=== PATIENT | female | born 1970 | race Two or more races ===

== ENCOUNTER 2024-05-22 19:38 | Emergency (ER) | payer MEDICAID ==
[~2024-05-22] VITALS: Ht 157.5 cm; Wt 58.3 kg
[2024-05-22 20:56] LABS: Basophils # (auto) 0 10 ^3/uL (0-0.2); Basophils % (auto) 0.4 % (0.0-2.0); Eosinophils # (auto) 0 10 ^3/uL (0-0.8); Eosinophils % (auto) 0.3 % (0.0-7.0); Hematocrit 43.7 % (36.0-46.0); Hemoglobin 15.2 g/dL (12.2-16.2); Lymphocytes # (auto) 1.1 10 ^3/uL (0.4-5.4); Lymphocytes % (auto) 19.9 % (10.0-50.0); Mean Corpuscular Hemoglobin 31.9 pg (28.0-32.0); Mean Corpuscular Hgb Conc. 34.7 g/dL (32.0-36.0); Mean Corpuscular Volume 91.9 fL (80.0-100.0); Monocytes # (auto) 0.2 10 ^3/uL (0-1.3); Neutrophils # (auto) 4.4 10 ^3/uL (1.6-8.6); Neutrophils % (auto) 75.4 % (37.0-80.0); Nucleated Red Blood Cells % 0.1 %; Platelet Count (auto) 294 10^3/uL (140-450); Red Blood Cells 4.75 10^6/uL (4.0-5.20); Red Cell Distribution Width 13.1 % (11.8-14.3); White Blood Cell 5.8 10^3/uL (4.4-10.8)
[2024-05-22 21:09] LABS: Alanine Aminotransferase 27 U/L (7-40); Albumin 4.7 g/dL (3.2-4.8); Alkaline Phosphatase 90 U/L (46-116); Anion Gap 7 (5-15); Aspartate Aminotransferase 24 U/L (13-40); BUN/Creatinine Ratio 15.3 (10.0-20.0); Blood Urea Nitrogen 13 mg/dL (9-23); Calcium 10.4 mg/dL (8.7-10.4); Carbon Dioxide 26 mmol/L (20-31); Chloride 106 mmol/L (98-107); Glucose 117 mg/dL (74-106); Potassium 4.3 mmol/L (3.5-5.1); Sodium 139 mmol/L (136-145)
[2024-05-22 21:10] LABS: Bilirubin, Total 0.8 mg/dL (0.2-1.0); Total Protein 7.6 g/dL (5.7-8.2)
--- NOTE | 2024-05-22 21:34 | ED.PDOC ---
History of Present Illness HPI Comments 53 y/o F, with a Hx of depression, presents with c/o nausea, vomiting, and headache since yesterday, associated with subjective fever and generalized weakness. Patient denies having any abdominal pain, hematemesis, diarrhea, dysuria, urinary frequency, urgency, hematuria, flank pain, constipation, chills, or other associated symptoms or modifiers at this time. Chief Complaint: Nausea/Vomiting Time Seen by MD: 20:50 Primary Care Provider: NONE Reviewed Notes: Nurses Notes, Medications, Allergies Allergies: Coded Allergies: NO KNOWN ALLERGIES (Unverified , 11/02/10) Home Meds Active Scripts Famotidine (Pepcid AC) 20 Mg Tab, 20 MG PO BID PRN, #30 TAB prn upset stomach Prov:KAREEM MAGDALENO MD 05/22/24 Ondansetron Odt 4MG Tab (ZOFRAN PO) 4 Mg Tb, 4 MG PO TID PRN, #30 TAB prn n/v ODT TAB-DISSOLVE IN MOUTH, THEN SWALLOW Prov:KAREEM MAGDALENO MD 05/22/24 Information Source: Patient Mode of Arrival: Ambulatory Severity: Moderate Timing: Days Duration: Since onset Prehospital treatment: Other (see HPI) Past Medical History PAST MEDICAL HISTORY: Depression Surgical History: Denies all surgeries 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 COILER 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: Denies all 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 Hx Family History Family History: Unknown Social History Smoker: Non-Smoker Alcohol: Denies ETOH Use Drugs: Denies Drug Use Lives In: Home Constitutional: denies: chills, diaphoresis, fatigue, fever, malaise, sweats, weakness, others EENTM: denies: blurred vision, double vision, ear bleeding, ear discharge, ear drainage, ear pain, ear ringing, eye pain, eye redness, hearing loss, mouth pain, mouth swelling, nasal discharge, nose bleeding, nose congestion, nose pain, photophobia, tearing, throat pain, throat swelling, voice changes, others Respiratory: denies: cough, hemoptysis, orthopnea, SOB at rest, shortness of breath, SOB with excertion, stridor, wheezing, others Cardiovascular: denies: chest pain, dizzy spells, diaphoresis, Dyspnea on exertion, edema, irregular heart beat, left arm pain, lightheadedness, palpitations, PND, syncope, others Gastrointestinal: reports: nausea, vomiting; denies: abdomen distended, abdominal pain, blood streaked bowels, constipated, diarrhea, dysphagia, difficulty swallowing, hematemesis, melena, poor appetite, poor fluid intake, rectal bleeding, rectal pain, others Genitourinary: denies: abnormal vagina bleeding, burning, dyspareunia, dysuria, flank pain, frequency, hematuria, incontinence, pain, , vagina discharge, urgency, others Neurological: reports: headache; denies: dizziness, fainting, left sided numbness, left sided weakness, numbness, paresthesia, pre-existing deficit, right sided numbness, right sided weakness, seizure, speech problems, tingling, tremors, weakness, others Musculoskeletal: denies: back pain, gout, joint pain, joint swelling, muscle pain, muscle stiffness, neck pain, others Integumetry: denies: bruises, change in color, change in hair/nails, dryness, laceration, lesions, lumps, rash, wounds, others Allergic/Immunocompromised: denies: Difficulty Healing, Frequent Infections, Hives, Itching, others Hematologic/Lymphatic: denies: anemia, blood clots, easy bleeding, easy bruising, swollen glands, others Endocrine: denies: excessive hunger, excessive sweating, excessive thirst, excessive urination, flushing, intolerance to cold, intolerance to heat, unexplained weight gain, unexplained weight loss, others Psychiatric: denies: anxiety, bipolar disorder, depression, hopeless, panic disorder, schizophrenia, sleepless, suicidal, others All Other Systems: Reviewed and Negative Physical Exam General Appearance: Mild Distress HEENT: Normal ENT Inspection Neck: Full Range of Motion, Normal Inspection Respiratory: Lungs Clear, No Accessory Muscle Use, No Respiratory Distress, Normal Breath Sounds Cardiovascular: No Edema, No JVD, Regular Rate/Rhythm Breast Exam: Deferred Gastrointestinal: Non Tender, Soft Genitalia: Deferred Pelvic: Deferred Rectal: Deferred Extremities: Normal inspection, Normal range of motion, No pedal edema Neurologic: Alert, No Motor Deficits, Normal Affect, Normal Mood, No Sensory Deficits Cerebellar Function: NOT DONE Reflexes: NOT DONE Skin: Dry, Normal Color, Warm Lymphatic: NOT DONE Was a procedure done? Was a procedure done?: No Differential Dx Considerations may include: gastritis, gastroenteritis, , viral syndrome, tension headache, migraines, spoiled food ingestion, among others X-Ray, Labs, Meds, VS Vital Signs Date Time Temp Pulse Resp B/P (MAP) Pulse Ox O2 Delivery O2 Flow Rate FiO2 05/23/24 00:10 63 18 98 Room Air* 0 21 05/23/24 00:10 98.0 63 18 102/57 (72) 98 98.0 05/22/24 19:51 98.1 72 16 102/60 (74) 98 Lab Test 05/22/24 20:34 Range/Units White Blood Count 5.8 4.4-10.8 10^3/uL Red Blood Count 4.75 4.0-5.20 10^6/uL Hemoglobin 15.2 12.2-16.2 g/dL Hematocrit 43.7 36.0-46.0 % Mean Corpuscular Volume 91.9 80.0-100.0 fL Mean Corpuscular Hemoglobin 31.9 28.0-32.0 pg Mean Corpuscular Hemoglobin Concent 34.7 32.0-36.0 g/dL Red Cell Distribution Width 13.1 11.8-14.3 % Platelet Count 294 140-450 10^3/uL Mean Platelet Volume 7.8 6.9-10.8 fL Neutrophils (%) (Auto) 75.4 37.0-80.0 % Lymphocytes (%) (Auto) 19.9 10.0-50.0 % Monocytes (%) (Auto) 4.0 0.0-12.0 % Eosinophils (%) (Auto) 0.3 0.0-7.0 % Basophils (%) (Auto) 0.4 0.0-2.0 % Neutrophils # (Auto) 4.4 1.6-8.6 10 ^3/uL Lymphocytes # (Auto) 1.1 0.4-5.4 10 ^3/uL Monocytes # (Auto) 0.2 0-1.3 10 ^3/uL Eosinophils # (Auto) 0 0-0.8 10 ^3/uL Basophils # (Auto) 0 0-0.2 10 ^3/uL Nucleated Red Blood Cells 0.1 % Sodium Level 139 136-145 mmol/L Potassium Level 4.3 3.5-5.1 mmol/L Chloride Level 106 98-107 mmol/L Carbon Dioxide Level 26 20-31 mmol/L Anion Gap 7 5-15 Blood Urea Nitrogen 13 9-23 mg/dL Creatinine 0.85 0.550-1.02 mg/dL Glomerular Filtration Rate Calc 83 >90 mL/min BUN/Creatinine Ratio 15.3 10.0-20.0 Serum Glucose 117 H 74-106 mg/dL Calcium Level 10.4 8.7-10.4 mg/dL Total Bilirubin 0.8 0.2-1.0 mg/dL Aspartate Amino Transferase (AST) 24 13-40 U/L Alanine Aminotransferase (ALT) 27 7-40 U/L Alkaline Phosphatase 90 46-116 U/L Total Protein 7.6 5.7-8.2 g/dL Albumin 4.7 3.2-4.8 g/dL Beta HCG, Quantitative 1.4 L 1.5-4.2 mIU/mL Current Medications Medications (Trade) Dose Ordered Sig/Francoise Route Start Time Stop Time Status Last Admin Sodium Chloride 1,000 ml @ 1,000 mls/hr Q1H ONCE IV 05/22/24 20:30 05/22/24 21:29 DC 05/23/24 00:16 Ondansetron HCl (Zofran) 4 mg ONCE ONCE IV 05/22/24 20:30 05/22/24 20:31 DC 05/23/24 00:16 Famotidine (Pepcid Injection) 20 mg ONCE ONCE IV 05/22/24 20:30 05/22/24 20:31 DC 05/23/24 00:17 Acetaminophen (Tylenol Tablet) 1,000 mg ONCE ONCE PO 05/23/24 01:45 05/23/24 01:46 DC 05/23/24 01:37 X-Ray, Labs, Meds, VS Comment 53-year-old female with a history of depression complaining of nausea and vomiting since yesterday, associated with headache Vitals unremarkable Exam remarkable for mild distress, no abdominal tenderness CBC normal, comprehensive metabolic panel remarkable for glucose 117, otherwise normal. HCG negative Patient did not provide a urine sample, however does not have any urinary symptoms so I have a low suspicion for UTI Patient treated with the following in the ED: 1 L 0.9 normal saline IV bolus, Zofran 4 mg IV, Pepcid 20 mg IV, Tylenol 1g po On re-evaluation, patient stated nausea has improved, she no longer feels weak and vitals were stable. Hospitalization was considered, however the patient had rapid improvement of her symptoms with treatment in the ED, and I no longer feel hospitalization is necessary. Patient appears stable for outpatient treatment and follow-up with her primary physician Rx Harika Hurd Time of 1ST Reevaluation: 21:20 Reevaluation 1ST: Unchanged Time of 2ND Reevaluation: 23:26 Reevaluation 2ND: Improved Patient Education/Counseling: Diagnosis, Treatment Family Education/Counseling: No Family Present Departure 1 Departure Time of Disposition: 23:26 Impression: Primary Impression: Nausea and vomiting Qualified Codes: R11.2 - Nausea with vomiting, unspecified Disposition: HOME / SELF CARE / HOMELESS Condition: Stable Additional Instructions: Your blood tests were normal. Follow-up with your primary doctor in 1-2 days. I have prescribed medication for nausea and upset stomach. e-Prescriptions Famotidine (Pepcid AC) 20 Mg Tab 20 MG PO BID PRN, #30 TAB prn upset stomach Prov: KAREEM MAGDALENO MD 05/22/24 Ondansetron Odt 4MG Tab (ZOFRAN PO) 4 Mg Tb 4 MG PO TID PRN, #30 TAB prn n/v ODT TAB-DISSOLVE IN MOUTH, THEN SWALLOW Prov: KAREEM MAGDALENO MD 05/22/24 Discharged With: Relative Critical Care Note Critical Care Time?: No Stability Stability form required: No Heart Score Heart Score: Heart Score Response (Comments) Value History N/A 0 EKG N/A 0 Age N/A 0 Risk Factors N/A 0 Troponin N/A 0 Total 0 I personally scribed for KAREEM MAGDALENO MD ([email or web address]) on 05/22/24 at 21:34. Electronically submitted by Bertram Gonzalez ([email or web address]). KAREEM MAGDALENO MD May 22, 2024 21:34
[2024-05-22] MEDS ORDERED: ZOFR4T PO (23:28)
[2024-05-22] MEDS ORDERED: FAMO-161 PO (23:28)
[2024-05-23 00:10] VITALS: BP 102/57; PULSE 63; RESP 18; TEMP 98; O2SAT 98
[2024-05-23] MEDS: SODIUM CHLORIDE 0.9% 1,000 ML IV ONE (00:16)
[2024-05-23] MEDS: ONDANSETRON HCL 4 MG/2 ML VIAL IV ONE (00:16)
[2024-05-23] MEDS: FAMOTIDINE (10MG/ML) 2ML VL IV ONE (00:17)
[2024-05-23] MEDS: ACETAMINOPHEN 500 MG TAB PO ONE (01:37)
== END 2024-05-23 01:48 | disposition home or self-care (01) ==
LOC: ER 19:38
DX: R11.2 Nausea with vomiting, unspecified (principal); R10.2 Pelvic and perineal pain
CPT/HCPCS: 36415; 80053; 84702; 85025; 96361; 96374; 96375; 99284; J2405; J3490; J7030

== ENCOUNTER 2025-02-11 16:50 | Emergency (ER) | payer MEDICAID ==
[~2025-02-11] VITALS: Ht 157.5 cm; Wt 58.0 kg
[~2025-02-11 16:50] MED LIST: FAMO-161 PO; ZOFR4T PO
[2025-02-11 18:46] LABS: Hematocrit 42.0 % (36.0-46.0); Hemoglobin 14.6 g/dL (12.2-16.2); Mean Corpuscular Hemoglobin 32.1 pg (28.0-32.0); Mean Corpuscular Volume 92.1 fL (80.0-100.0); Nucleated Red Blood Cells % 0.0 %
[2025-02-11 18:51] LABS: Potassium 4.1 mmol/L (3.5-5.1); Sodium 143 mmol/L (136-145)
[2025-02-11 18:53] LABS: Calcium 9.6 mg/dL (8.7-10.4)
[2025-02-11 18:54] LABS: Chloride 108 mmol/L (98-107)
[2025-02-11 18:58] LABS: BUN/Creatinine Ratio 18.3 (10.0-20.0); Blood Urea Nitrogen 15 mg/dL (9-23)
[2025-02-11 19:00] LABS: Glucose 115 mg/dL (74-106)
--- NOTE | 2025-02-11 19:06 | ED.PDOC ---
History of Present Illness HPI Comments 54-year-old Burmese-speaking female who presents with chief complaint of headache, nausea, and vomiting. 1xday history of symptoms, which began this morning, following sudden, unprovoked, and atraumatic onset. Recent injuries, sick contact, or travel. Denies having any pertinent medical history. Denies h aving any bloody or bilious emesis, diarrhea, abdominal pain, urinary symptoms, fever, chills, or further associated symptoms. REVIEW OF SYSTEMS: General: No fever, no chills, or fatigue HEENT: No sore throat, no earache, no congestion, no neck pain. Cardiac: No chest pain. No palpitations. Lungs: No shortness of breath, no cough. GI: Nausea and vomiting, no diarrhea, no constipation, no abdominal pain : No dysuria, frequency, or urgency. No hematuria. Musculoskeletal: No joint pain , no joint swelling, no extremity edema. Skin: No rash, no itching. Neuro: Headache, no dizziness, no weakness PHYSICAL EXAM: General: Awake, alert and oriented. No acute distress. Skin: Skin in warm, dry and intact. Appropriate color for ethnicity. HEENT: The head is normocephalic and atraumatic. Conjunctivae are clear without exudates or hemorrhage. Sclera is non-icteric. EOM are intact. No signs of nystagmus. Eyelids are normal in appearance without swelling or lesions. Oral mucosa is pink and moist Neck: The neck is supple with normal range of motion. No JVD. Cardiac: Heart rate and rhythm are normal. No murmurs, gallops, or rubs are auscultated. Respiratory: No signs of respiratory distress. Lung sounds are clear in all lobes bilaterally without rales, rhonchi, or wheezes. Abdominal: Abdomen is soft, non-tender without distention, guarding or rigidity. Bowel sounds are present and normoactive in all four quadrants. Extremities: Upper and lower extremities are atraumatic in appearance without deformity or edema. Neurological: The patient is awake, alert and oriented to person, place, and time with normal speech. Speech is clear. There is no facial asymmetry. Wobbling gait. Psychiatric: Appropriate mood and affect. Good judgement and insight. Chief Complaint: Nausea/Vomiting Time Seen by MD: 18:30 Primary Care Provider: NONE Reviewed Notes: Nurses Notes, Medications, Allergies Allergies: Coded Allergies: NO KNOWN ALLERGIES (Unverified , 11/02/10) Home Meds Active Scripts Acetaminophen (Acetaminophen Er) 650 Mg Tab, 650 MG PO TIDP PRN for 5 Days, #15 TAB Prov:JAXON YANG MD 02/11/25 Ondansetron Odt 4MG Tab (ZOFRAN PO) 4 Mg Tb, 4 MG PO TIDP PRN, #9 TAB ODT TAB-DISSOLVE IN MOUTH, THEN SWALLOW Prov:JAXON YANG MD 02/11/25 Famotidine (Pepcid AC) 20 Mg Tab, 20 MG PO BID PRN, #30 TAB prn upset stomach Prov:KAREEM MAGDALENO MD 05/22/24 Ondansetron Odt 4MG Tab (ZOFRAN PO) 4 Mg Tb, 4 MG PO TID PRN, #30 TAB prn n/v ODT TAB-DISSOLVE IN MOUTH, THEN SWALLOW Prov:KAREEM MAGDALENO MD 05/22/24 Information Source: Patient Mode of Arrival: Ambulatory Severity: Moderate Timing: Hours Duration: Since onset Prehospital treatment: None Past Medical History PAST MEDICAL HISTORY: Denies Surgical History: Denies all surgeries 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 Was a procedure done?: No Differential Dx Considerations may include: Differential diagnoses considered include: Abdominal aortic aneurysm, ND, esophageal rupture, intestinal obstruction, mesenteric ischemia, perforated viscus or solid organ rupture, CHF with hepatomegaly, pneumonia, abscess, appendicitis, biliary disease, diverticulitis, gastritis, gastroenteritis, hepatitis, hernia, inflammatory bowel disease, pancreatitis, peptic ulcer disease, urinary tract infection, ureteral colic, constipation, GERD, irritable syndrome, abdominal wall pain, nonspecific abdominal pain, herpes zoster, nephrolithiasis, electrolyte imbalance, dehydration. [ ]Also ruptured ectopic , ovarian torsion/cyst, tubo-ovarian abscess, PID, endometriosis, mittelschmerz. X-Ray, Labs, Meds, VS Vital Signs Date Time Temp Pulse Resp B/P (MAP) Pulse Ox O2 Delivery O2 Flow Rate FiO2 02/11/25 22:20 98.0 74 16 105/62 (76) 98.0 02/11/25 21:24 66 14 98 Room Air* 0 21 02/11/25 20:59 66 14 98 Room Air 02/11/25 20:59 66 14 94/54 (67) 98 02/11/25 17:06 99.9 76 16 113/80 96 99.9 Lab Test 02/11/25 18:37 02/11/25 18:24 Range/Units Sodium Level 143 136-145 mmol/L Potassium Level 4.1 3.5-5.1 mmol/L Chloride Level 108 H 98-107 mmol/L Carbon Dioxide Level 24 20-31 mmol/L Anion Gap 11 5-15 Blood Urea Nitrogen 15 9-23 mg/dL Creatinine 0.82 0.550-1.02 mg/dL Glomerular Filtration Rate Calc 86 >90 mL/min BUN/Creatinine Ratio 18.3 10.0-20.0 Serum Glucose 115 H 74-106 mg/dL Calcium Level 9.6 8.7-10.4 mg/dL White Blood Count 8.2 4.4-10.8 10^3/uL Red Blood Count 4.56 4.0-5.20 10^6/uL Hemoglobin 14.6 12.2-16.2 g/dL Hematocrit 42.0 36.0-46.0 % Mean Corpuscular Volume 92.1 80.0-100.0 fL Mean Corpuscular Hemoglobin 32.1 H 28.0-32.0 pg Mean Corpuscular Hemoglobin Concent 34.8 32.0-36.0 g/dL Red Cell Distribution Width 13.1 11.8-14.3 % Platelet Count 300 140-450 10^3/uL Mean Platelet Volume 7.1 6.9-10.8 fL Neutrophils (%) (Auto) 85.8 H 37.0-80.0 % Lymphocytes (%) (Auto) 10.3 10.0-50.0 % Monocytes (%) (Auto) 3.6 0.0-12.0 % Eosinophils (%) (Auto) 0.0 0.0-7.0 % Basophils (%) (Auto) 0.3 0.0-2.0 % Neutrophils # (Auto) 7.0 1.6-8.6 10 ^3/uL Lymphocytes # (Auto) 0.8 0.4-5.4 10 ^3/uL Monocytes # (Auto) 0.3 0-1.3 10 ^3/uL Eosinophils # (Auto) 0 0-0.8 10 ^3/uL Basophils # (Auto) 0 0-0.2 10 ^3/uL Nucleated Red Blood Cells 0.0 % Current Medications Medications (Trade) Dose Ordered Sig/Francoise Route Start Time Stop Time Status Last Admin Sodium Chloride 1,000 ml @ 1,000 mls/hr Q1H ONCE IV 02/11/25 19:30 02/11/25 20:29 DC 02/11/25 19:30 Ketorolac Tromethamine (Toradol Injection) 30 mg ONCE ONCE IV 02/11/25 19:30 02/11/25 19:31 DC 02/11/25 21:12 Diphenhydramine HCl (Benadryl Injection) 25 mg ONCE ONCE IV 02/11/25 19:30 02/11/25 19:31 DC 02/11/25 21:11 Metoclopramide HCl (Reglan Injection) 10 mg ONCE ONCE IV 02/11/25 19:30 02/11/25 19:31 DC 02/11/25 21:11 Time of 1ST Reevaluation: 19:00 Reevaluation 1ST: Unchanged Patient Education/Counseling: Treatment, Need For Follow Up Family Education/Counseling: No Family Present SEPSIS Sepsis Screen Date sepsis recognized/suspect: Feb 11, 2025 Time Sepsis recognized/suspect: 1709 Recent Procedure: No On Antibiotic Therapy: No Respiratory Rate >20: No Heart Rate >90: No Temp<36 C (96.8 F) or >38.3 C: No SBP <90 or MAP <65 mmHG: No New Acute Mental Status Change: No Is the patient on CPAP, BIPAP,: No Physician Orders Urinalysis (02/11/25 18:24) Head Without Contrast (02/11/25 19:30) Vital Signs Date Time Temp Pulse Resp B/P (MAP) Pulse Ox O2 Delivery O2 Flow Rate FiO2 02/11/25 22:20 98.0 74 16 105/62 (76) 98.0 02/11/25 21:24 66 14 98 Room Air* 0 21 02/11/25 20:59 66 14 98 Room Air 02/11/25 20:59 66 14 94/54 (67) 98 02/11/25 17:06 99.9 76 16 113/80 96 99.9 Laboratory Tests Test 02/11/25 18:24 White Blood Count 8.2 10^3/uL (4.4-10.8) Medications Medications Dose Ordered Sig/Francoise Route Start Time Stop Time Status Last Admin Dose Admin Diphenhydramine HCl 25 mg ONCE ONCE IV 02/11/25 19:30 02/11/25 19:31 DC 02/11/25 21:11 Ketorolac Tromethamine 30 mg ONCE ONCE IV 02/11/25 19:30 02/11/25 19:31 DC 02/11/25 21:12 Metoclopramide HCl 10 mg ONCE ONCE IV 02/11/25 19:30 02/11/25 19:31 DC 02/11/25 21:11 Sodium Chloride 1,000 ml @ 1,000 mls/hr Q1H ONCE IV 02/11/25 19:30 02/11/25 20:29 DC 02/11/25 19:30 Departure 1 Departure Time of Disposition: 20:44 Impression: Primary Impression: Nausea and vomiting Additional Impression: Headache Disposition: ADMITTED INPATIENT Condition: Stable Additional Instructions: INSTRUCCIONES DE ARTEMIO DE Urgencias Instrucciones: Amari atentamente todas las instrucciones proporcionadas en stanislaw paquete. Aunque le hayan dado el artemio del Departamento de Emergencias, esto no significa que tenga un "certificado de buena robert". Hoy no se elmore realizado ningn diagnstico definitivo para honey sntomas. Es posible que ests en proceso de desarrollar rex enfermedad grave. Es por eso que debe regresar al servicio de urgencias sin falta si presenta algn sntoma nuevo o que empeora (especialmente si honey sntomas incluyen dolor en el pecho, dificultad para respirar, dolor abdominal, fiebre, dolor de venkat, confusin, dificultad para ramy o caminar). Tambin es muy importante que consulte a un mdico de atencin primaria dentro de los prximos 3 a 5 zepeda para realizar un seguimiento. Si no puede conseguir rex kathya, regrese al servicio de urgencias para rex nueva evaluacin. Se incluye a continuacin rex copia de silva informe de tomografa computarizada. Por favor, mantenga esto y llvelo a silva prxima visita de atencin primaria. Dolor de venkat por migraa: instrucciones de cuidado Tabla de contenido Descripcin general Legal Collector puedes cuidarte en casa? Cundo debes pedir ayuda? Crditos Descripcin general Las migraas son ashley de venkat punzantes y dolorosos que suelen comenzar en un lado de la venkat. Pueden causar nuseas y vmitos y hacer que el paciente se vuelva sensible a la sun, los sonidos o los olores. Sin tratamiento, las migraas pueden durar desde 4 horas hasta algunos zepeda. Los medicamentos pueden ayudar a prevenir las migraas o detenerlas rex vez que hayan comenzado. Silva mdico puede ayudarlo a encontrar los que funcionan mejor para usted. El seguimiento mdico es rex parte fundamental de silva tratamiento y silva seguridad. Asegrese de programar y acudir a todas las citas, y llame a silva mdico si tiene problemas. Tambin es rex buena idea saber los resultados de honey pruebas y llevar rex lista de los medicamentos que norman. Legal Collector puedes cuidarte en casa? No conduzca si elmore tomado algn analgsico recetado. Descanse en rex habitacin tranquila y oscura hasta que desaparezca el dolor de venkat. Cierre los ojos e intente relajarse o dormir. No brandon televisin ni amari. Coloque un fransisco hmedo y fro o rex compresa fra sobre la sandy dolorida jacek 10 a 20 minutos cada vez. Coloque un fransisco chin entre la compresa fra y la piel. Utilice rex toalla tibia y hmeda o rex almohadilla trmica a temperatura baja para relajar los msculos tensos de los hombros y el will. Pdale a alguien que le masajee suavemente el will y los hombros. [place] honey medicamentos exactamente francis le hayan recetado. Llame a silva mdico si laure que tiene un problema con silva medicamento. Recibir ms detalles sobre los medicamentos especficos que le recete silva mdico. No tome medicamentos para el dolor de venkat con demasiada frecuencia. Hable con silva mdico si est tomando medicamentos ms de 2 zepeda a la semana para aliviar el dolor de venkat. Ursula demasiados analgsicos puede provocar ms ashley de venkat. Estos se denominan ashley de venkat por uso excesivo de medicamentos. Para prevenir las migraas Lleva un diario de tus ashley de venkat para que puedas identificar qu los desencadena. Evitar los desencadenantes puede ayudarte a prevenirlos. Registra cundo comenz cada dolor de venkat, cunto dur y game author fue. Anota cualquier otro sntoma que hayas tenido junto con el dolor de venkat, francis nuseas, luces intermitentes o manchas oscuras, o sensibilidad a la sun brillante o a los ruidos raulito. Anota si el dolor de venkat se produjo cerca de tu perodo. Haz rex lista de todo lo que podra yuli desencadenado el dolor de venkat. Los desencadenantes pueden incluir ciertos alimentos (chocolate, queso, vino) u olores, humo, sun brillante, estrs o falta de sueo. Si silva mdico le elmore recetado medicamentos para las migraas, tmelos segn las indicaciones. Puede ursula medicamentos solo cuando le d migraa y medicamentos que tome todo el tiempo para ayudar a prevenir las migraas. Si silva mdico le elmore recetado un medicamento para cuando le duele la venkat, tmelo ante la primera seal de migraa, a menos que le haya dado otras instrucciones. Si silva mdico le elmore recetado medicamentos para prevenir las migraas, tmelos exactamente francis se lo indiquen. Llame a silva mdico si laure que tiene un problema con silva medicamento. Busque formas saludables de lidiar con el estrs. Las migraas son ms comunes jacek o inmediatamente despus de perodos estresantes. Intente encontrar formas de reducir el estrs, francis practicar la atencin plena o ejercicios de respiracin profunda. Duerma kana y zeynep ejercicio, donavan tenga cuidado de no esforzarse demasiado jacek el ejercicio, ya que puede provocarle dolor de venkat. Siga un horario regular para comer. Evite los alimentos y las bebidas que suelen desencadenar migraas, francis el chocolate, el alcohol (especialmente el vino tinto y el oporto), el aspartamo, el glutamato monosdico (GMS) y algunos aditivos presentes en los alimentos (francis los perritos calientes, el tocino, los embutidos, los quesos curados y los encurtidos). Limite la cafena. No tome demasiado caf, t o refrescos, donavan no deje de ursula cafena de repente, ya que tambin puede provocarle migraas. No fume ni permita que otras personas fumen cerca de usted. Si necesita ayuda para dejar de fumar, hable con silva mdico sobre programas y medicamentos para dejar de fumar. Estos pueden aumentar honey probabilidades de dejar de fumar para siempre. Si est tomando pldoras anticonceptivas o terapia hormonal, hable con silva mdico sobre si candida son las causas de honey migraas. Cundo debes pedir ayuda? Llame al 911 en cualquier momento en que considere que puede necesitar atencin de emergencia. Por ejemplo, llame si: Tiene sntomas de un accidente cerebrovascular, que pueden incluir: Entumecimiento repentino, parlisis o debilidad en la carolin, el brazo o la pierna, especialmente en un solo lado del cuerpo. Cambios repentinos en la visin. Dificultad repentina para hablar. Confusin repentina o dificultad para comprender afirmaciones simples. Problemas repentinos con la marcha o el equilibrio. Un dolor de venkat repentino y vicky que es diferente a los ashley de venkat anteriores. Llame a silva mdico ahora o busque atencin mdica inmediata si: Tienes fiebre y el will rgido. Tu dolor de venkat empeora mucho. Preste atencin a los cambios en silva robert y asegrese de comunicarse con silva mdico si: Honey ashley de venkat empeoran, ocurren con ms frecuencia o cambian de alguna manera. Tienes nuevos sntomas. Tu sav se ve alterada por tus ashley de venkat. Por ejemplo, a menudo faltas al trabajo, a la escuela o a otras actividades. No mejoras francis esperabas Crditos para la migraa: instrucciones de cuidado Actualizado al: 3 de 2023 Autor: Personal de [employer] Junta de revisin clnica Toda la educacin de app[employer] es revisada por un equipo que incluye mdicos, enfermeras, profesionales avanzados, dietistas registrados y otros profesionales de la robert. CAT scan report: CT BRAIN WITHOUT CONTRAST HISTORY: Severe headache, gait abnormality, dizziness TECHNIQUE: Axial scans were obtained from the skull base through the vertex without contrast. Sagittal and coronal reformats were generated. One or more of the following radiation dose reduction techniques were used for this examination: automated exposure control, adjustment of the mA and/or kV according to patient size, use of iterative reconstruction technique. COMPARISON: None FINDINGS: No acute intracranial hemorrhage or evidence of large vessel territorial infarction identified at this time. No midline shift. The basilar cisterns are patent. The visualized paranasal sinuses and mastoid air cells are clear. No grossly di splaced calvarial fracture identified. IMPRESSION: No acute intracranial findings. Given the clinical history, if there is persistent concern, MRI may be considered to further evaluate. e-Prescriptions Acetaminophen (Acetaminophen Er) 650 Mg Tab 650 MG PO TIDP PRN for 5 Days, #15 TAB Prov: JAXON YANG MD 02/11/25 Ondansetron Odt 4MG Tab (ZOFRAN PO) 4 Mg Tb 4 MG PO TIDP PRN, #9 TAB ODT TAB-DISSOLVE IN MOUTH, THEN SWALLOW Prov: JAXON YANG MD 02/11/25 Comments MDM: 54-year-old female presents with headache. No focal neurological symptoms. Neuro exam is benign. Pt is nontoxic. VSS. Based on history and normal neurological exam I have low suspicion for intracranial tumor, intracranial bleed, meningitis, temporal arteritis, glaucoma, CO poisoning. Most likely patient has benign headache, recommend rest, hydration, and OTC pain control. Extensive evaluation was performed in attempt to identify or rule out: (See differential diagnosis section) The following tests were ordered, and results were reviewed by me and discussed with patient: (See diagnostic results section) The following test were independently interpreted by me: N/A I reviewed and agreed with the following test results read by other providers: N/A I reviewed the following notes from the pt's past medical encounters: May 22, 2024 encounter for nausea and vomiting Decision regarding hospitalization or escalation of hospital level of care: Risks and benefits of admission for further treatment of patient's condition was considered however due to patient's stable condition patient will be discharged to follow up closely or return to care for worsening of condition or inability to follow up. Critical Care Note Critical Care Time?: No Stability Stability form required: No Heart Score Heart Score: Heart Score Response (Comments) Value History N/A 0 EKG N/A 0 Age N/A 0 Risk Factors N/A 0 Troponin N/A 0 Total 0 I personally scribed for JAXON YANG MD ([email or web address]) on 02/11/25 at 19:06. Electronically submitted by Bertram Gonzalez ([email or web address]). JAXON YANG MD Feb 11, 2025 19:06
[2025-02-11 19:16] LABS: Anion Gap 11 (5-15); Carbon Dioxide 24 mmol/L (20-31)
[2025-02-11] MEDS: SODIUM CHLORIDE 0.9% 1,000 ML IV ONE (19:30)
--- NOTE | 2025-02-11 20:27 | DVH ---
CT BRAIN WITHOUT CONTRAST HISTORY: Severe headache, gait abnormality, dizziness TECHNIQUE: Axial scans were obtained from the skull base through the vertex without contrast. Sagitta l and coronal reformats were generated. One or more of the following radiation dose reduction techniq ues were used for this examination: automated exposure control, adjustment of the mA and/or kV accord ing to patient size, use of iterative reconstruction technique. COMPARISON: None FINDINGS: No acute intracranial hemorrhage or evidence of large vessel territorial infarction identified at thi s time. No midline shift. The basilar cisterns are patent. The visualized paranasal sinuses and mastoid air cells are clear. No grossly displaced calvarial frac ture identified. IMPRESSION: No acute intracranial findings. Given the clinical history, if there is persistent concern, MRI may be considered to further evaluate .
[2025-02-11] MEDS ORDERED: ZOFR4T PO (20:49)
[2025-02-11] MEDS ORDERED: ACET650T12 PO (20:50)
[2025-02-11] MEDS: METOCLOPRAMIDE HCL 5MG/ml INJ 2ml VIAL IV ONE (21:11)
[2025-02-11] MEDS: diphenhdrAMINE HCL 50 MG/1 ML VL IV ONE (21:11)
[2025-02-11] MEDS: KETOROLAC TROMETH 30 MG/ML 1ML VIAL IV ONE (21:12)
[2025-02-11 21:24] VITALS: PULSE 66; RESP 14; O2SAT 98
[2025-02-11 22:20] VITALS: BP 105/62; PULSE 74; RESP 16; TEMP 98
== END 2025-02-11 22:25 | disposition home or self-care (01) ==
LOC: ER 16:50
DX: R11.2 Nausea with vomiting, unspecified (principal); R51.9 Headache, unspecified; Z79.899 Other long term (current) drug therapy
CPT/HCPCS: 36415; 70450; 80048; 85025; 96361; 96374; 96375; 99285; J1200; J1885; J2765; J7030